=== PATIENT | female | born 1960 | race Caucasian/White ===

== ENCOUNTER → 2016-06-09 | Outpatient (CLI) | payer BC | END | disposition home or self-care (01) | LOC: RAD.S 09:07 | DX: R92.8 Other abnormal and inconclusive findings on diagnostic imaging of breast (principal) ==

== ENCOUNTER → 2016-07-21 | Outpatient (CLI) | payer BC | END | disposition home or self-care (01) | LOC: RAD.S 13:00 | DX: R92.8 Other abnormal and inconclusive findings on diagnostic imaging of breast (principal); N63 Unspecified lump in breast; R59.0 Localized enlarged lymph nodes ==

== ENCOUNTER → 2016-07-26 | Outpatient (CLI) | payer BC | END | disposition home or self-care (01) | LOC: RAD.S 10:21 | PROC: 0HBU3ZX Excision of Left Breast, Percutaneous Approach, Diagnostic (ICD-10-PCS; principal; 2016-07-26) | DX: C50.912 Malignant neoplasm of unspecified site of left female breast (principal); C77.3 Secondary and unspecified malignant neoplasm of axilla and upper limb lymph nodes; Z17.0 Estrogen receptor positive status [ER+] ==

== ENCOUNTER → 2016-08-03 | Outpatient (CLI) | payer BC | END | disposition home or self-care (01) | LOC: RAD.S 08:32 | DX: N63 Unspecified lump in breast (principal); R59.0 Localized enlarged lymph nodes ==

== ENCOUNTER → 2016-08-08 | Outpatient (CLI) | payer BC ==
--- NOTE | ~2016-08-08 | ECH ---
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 The estimated left ventricular ejection fraction is 60-65%. The left ventricle is moderately dilated . Mild left ventricular hypertrophy. The left atrium is severely dilated by LA volume index measurement. The right atrium is mild to moderately dilated. There is mild aortic regurgitation by color Doppler. No other significant valvular abnormalities. Procedure Type of Study TTE procedure:Echo Complete SF. Procedure Date Date: 08/08/2016 Start: 10:02 Technical Quality: Fair due to breast augmentation. Indications:Pre-chemotherapy. Appropriate Use Criteria: 9 Height: 66 inches Weight: 173 pounds BSA: 1.88 m Rhythm: Within normal limits HR: 53 bpm BP: 97/49 mmHg M-Mode/2D Measurements LV Diastolic Dimension: 5.96 cm LV Systolic Dimension: 3.05 cm LV Septum Diastolic: 0.89 cm LV PW Diastolic: 1.24 cm AO Root Dimension: 2.76 cm Cardiac Output: 3.43 l/min LA Dimension: 4.96 cm Cardiac Index: 1.82 l/min*m RV Diastolic Dimension: 2.72 cm LA volume index: 58 ml/m LVOT: 1.79 cm IVC Inspiration: 1.69 cm LVOT VTI: 25.7 cm RV Base: 2.87 cm LV Stroke volume: 64.64 ml RV Mid: 1.83 cm LV Stroke volume index: 34.38 ml/m TAPSE: 3.29 cm Doppler Measurements AV Peak Velocity: 1.57 m/s MV Peak E-Wave: 0.66 m/s AV Peak Gradient: 9.86 mmHg MV Peak A-Wave: 0.38 m/s AV Mean Gradient: 5.22 mmHg MV E/A Ratio: 1.73 LVOT Peak Velocity: 1.22 m/s MV P1/2t: 56.8 msec AV Area (Continuity):2.05 cm AV P1/2t: 616.2 msec MV Deceleration Time: 195.9 msec MV Area (PHT): 3.87 cm RA Area: 23.42 cm Findings Left Ventricle The left ventricle is moderately dilated . Mild left ventricular hypertrophy. Diastolic assessment reveals normal relaxation. Right Ventricle Normal right ventricle structure and function. Left Atrium The left atrium is severely dilated by LA volume index measurement. Right Atrium The right atrium is mild to moderately dilated. Mitral Valve Normal mitral valve structure and function. Trivial mitral regurgitation by color Doppler. Aortic Valve The aortic valve was not well imaged. There is mild aortic regurgitation by color Doppler. Tricuspid Valve Normal tricuspid valve structure and function. Trivial tricuspid regurgitation by color Doppler. Pulmonic Valve The pulmonic valve is not well visualized. Pericardial Effusion No evidence of pericardial effusion. Miscellaneous Visualized portions of the aortic root and ascending aorta appear normal in size. Pleural Effusion No evidence of pleural effusion. Signature
== END | disposition home or self-care (01) ==
LOC: CARD 09:47
DX: C50.919 Malignant neoplasm of unspecified site of unspecified female breast (principal); Z51.11 Encounter for antineoplastic chemotherapy; I51.7 Cardiomegaly; I35.1 Nonrheumatic aortic (valve) insufficiency